=== PATIENT | female | born 1940 | race Caucasian/White ===

== ENCOUNTER 2020-12-15 14:24 | Inpatient (IN) ==
[2020-12-15] MEDS ORDERED: Calcium Gluconate 1gm/50mL 1 GM/50 ML BAG IVPB PRN (14:35)
[2020-12-15 15:02] LABS: Basophils % 0.5 %; Eosinophils # 0.1 K/mcL (0.0-0.6); Eosinophils % 2.2 %; Hemoglobin 10.3 g/dL (11.5-15.4); Immature Granulocytes % 0.3 % (0-4); Lymphocytes # 2.4 K/mcL (0.6-4.6); Lymphocytes % 37.8 %; Mean Corpuscular HGB Conc 31.2 g/dL (31.6-35.5); Mean Corpuscular Hemoglobin 30.4 pg (28.0-33.3); Mean Corpuscular Volume 97.3 fL (83.0-100.0); Mean Platelet Volume 11.6 fL (9.4-12.4); Monocytes # 0.6 K/mcL (0.0-1.3); Monocytes % 8.7 %; Neutrophils # 3.2 K/mcL (1.6-8.9); Platelet Count 150 K/mcL (140-400); Red Blood Count 3.39 M/mcL (3.82-4.97); Red Cell Distribution Width 15.1 % (11.5-14.5); Segmented Neutrophils % 50.5 %; White Blood Count 6.3 K/mcL (4.3-11.1)
[2020-12-15 15:37] LABS: BUN/Creatinine Ratio 13 (6-26); Blood Urea Nitrogen 23 mg/dL (8-23); Calcium 8.6 mg/dL (8.6-10.3); Carbon Dioxide 25 mEq/L (23-29); Chloride 109 mEq/L (98-107); Glucose 130 mg/dL (70-105); Osmolality,Calculated 297 (280-300); Potassium 4.9 mEq/L (3.5-5.1); Sodium 141 mEq/L (136-145); Troponin I < 0.03 ng/mL (< 0.04); eGFR For African Americans 33 (> 60); eGFR For Non-African Americans 27 (> 60)
[2020-12-15] MEDS ORDERED: Perflutren Lipid Microsphere 1.3 ML in 0.9 % Sodium Chloride 8.7 ML IVP PRN (16:10)
[2020-12-15] MEDS ORDERED: 0.9 % Sodium Chloride 500 ML IVC ONE (16:13)
[2020-12-15 16:33] LABS: Magnesium 1.9 mg/dL (1.6-2.6)
[2020-12-15 16:47] LABS: Thyroid Stimulating Hormone 3.953 mcIU/mL (0.340-5.600)
[2020-12-15] MEDS ORDERED: Naloxone 0.4 MG/ML INJ IVP PRN (17:00)
[2020-12-15] MEDS ORDERED: Acetaminophen 325 MG TABLET PO PRN (17:00)
[2020-12-15] MEDS ORDERED: Dextrose Gel 15 GM/37.5 ML TUBE PO PRN ×2 (17:00)
[2020-12-15] MEDS ORDERED: D5% in Water 1,000 ML IVC PRN (17:00)
[2020-12-15] MEDS ORDERED: *HR* Dextrose 50 % in Water (Vial) 50 ML VIAL IVP PRN (17:00)
[2020-12-15] MEDS ORDERED: Ondansetron 4 MG/2 ML VIAL IVP PRN (17:00)
[2020-12-15] MEDS ORDERED: cloNIDine HCL 0.1 MG TABLET PO ONE (19:24)
[2020-12-15] MEDS: *HR* Heparin 5,000 UNIT/ML VIAL SQ SCH (19:25)
[2020-12-15] MEDS ORDERED: Insulin DETEMIR 100 UNIT/ML X5UNITS SUBQ SCH (21:00)
[2020-12-16 02:39] LABS: Basophils % 0.3 %; Eosinophils # 0.2 K/mcL (0.0-0.6); Eosinophils % 1.6 %; Hematocrit 32.9 % (35.3-44.9); Hemoglobin 10.5 g/dL (11.5-15.4); Immature Granulocytes % 0.2 % (0-4); Lymphocytes # 4.5 K/mcL (0.6-4.6); Lymphocytes % 35.5 %; Mean Corpuscular HGB Conc 31.9 g/dL (31.6-35.5); Mean Corpuscular Hemoglobin 30.6 pg (28.0-33.3); Mean Corpuscular Volume 95.9 fL (83.0-100.0); Mean Platelet Volume 11.4 fL (9.4-12.4); Monocytes # 1.4 K/mcL (0.0-1.3); Monocytes % 10.7 %; Neutrophils # 6.5 K/mcL (1.6-8.9); Platelet Count 214 K/mcL (140-400); Red Blood Count 3.43 M/mcL (3.82-4.97); Red Cell Distribution Width 14.9 % (11.5-14.5); Segmented Neutrophils % 51.7 %
[2020-12-16 02:40] LABS: White Blood Count 12.6 K/mcL (4.3-11.1)
[2020-12-16 03:00] LABS: Calcium 8.9 mg/dL (8.6-10.3); Chol/HDL Ratio 4.9 (0-4.9); Potassium 3.8 mEq/L (3.5-5.1); Troponin I 0.03 ng/mL (< 0.04)
[2020-12-16] MEDS: *HR* Heparin 5,000 UNIT/ML VIAL SQ SCH (05:50)
[2020-12-16] MEDS: Insulin LISPRO 300 UNITS/3 ML VIAL SUBQ SCH ×3 (07:39→17:01)
[2020-12-16] MEDS: OLANZapine 5 MG TAB.RAPDIS PO SCH ×2 (09:09→20:45)
[2020-12-16] MEDS: cloNIDine HCL 0.1 MG TABLET PO SCH ×2 (09:09→20:46)
[2020-12-16] MEDS: Cholecalciferol (D-3) 1,000 UNIT (25MCG) TABLET PO SCH (09:09)
[2020-12-16] MEDS: Fenofibrate 54 MG TABLET PO SCH (09:09)
[2020-12-16] MEDS: Divalproex (12 HR) 250 MG TABLET PO SCH (09:09)
[2020-12-16] MEDS: amLODIPine 5 MG TABLET PO SCH (11:47)
[2020-12-16] MEDS: Apixaban 5 MG TABLET PO SCH ×2 (11:47→20:45)
[2020-12-16] MEDS ORDERED: Acetaminophen 325 MG TABLET PO SCH (12:00)
[2020-12-16] MEDS ORDERED: cloNIDine HCL 0.1 MG TABLET PO ONE (19:11)
[2020-12-16] MEDS ORDERED: Melatonin 3 MG TABLET PO SCH (21:00)
[2020-12-16] MEDS ORDERED: Insulin DETEMIR 100 UNIT/ML X5UNITS SUBQ SCH (21:00)
[2020-12-16] MEDS ORDERED: Divalproex Sodium 125 MG Sprinkle Capsule (DR) PO SCH (21:00)
[2020-12-17] MEDS: Insulin LISPRO 300 UNITS/3 ML VIAL SUBQ SCH ×2 (08:41→12:10)
[2020-12-17] MEDS: Cholecalciferol (D-3) 1,000 UNIT (25MCG) TABLET PO SCH (08:47)
[2020-12-17] MEDS: amLODIPine 5 MG TABLET PO SCH (08:48)
[2020-12-17] MEDS: OLANZapine 5 MG TAB.RAPDIS PO SCH (08:48)
[2020-12-17] MEDS: Fenofibrate 54 MG TABLET PO SCH (08:48)
[2020-12-17] MEDS: Divalproex (12 HR) 250 MG TABLET PO SCH (08:48)
[2020-12-17] MEDS: Apixaban 5 MG TABLET PO SCH (08:49)
[2020-12-17] MEDS ORDERED: cloNIDine HCL 0.1 MG TABLET PO SCH (09:00)
[2020-12-17 10:48] VITALS: BP 185/64
== END 2020-12-17 14:39 | DRG 310 ==
LOC: 2NENU 14:24 → EMEROOARM 14:24 → SUATTDRO 16:54 → 2NENU 18:40
PROVIDERS: ADMIT Internal Medicine; ATTEND Internal Medicine

== ENCOUNTER 2021-03-30 19:06 | Inpatient (IN) ==
[2021-03-30 19:54] LABS: Basophils % 0.4 %; Eosinophils % 0.2 %; Hemoglobin 9.7 g/dL (11.5-15.4); Immature Granulocytes % 0.6 % (0-4); Lymphocytes # 0.5 K/mcL (0.6-4.6); Lymphocytes % 9.7 %; Mean Corpuscular HGB Conc 30.3 g/dL (31.6-35.5); Mean Corpuscular Hemoglobin 28.4 pg (28.0-33.3); Mean Corpuscular Volume 93.6 fL (83.0-100.0); Mean Platelet Volume 12.9 fL (9.4-12.4); Monocytes # 0.1 K/mcL (0.0-1.3); Monocytes % 1.5 %; Neutrophils # 4.1 K/mcL (1.6-8.9); Platelet Count 161 K/mcL (140-400); Red Blood Count 3.42 M/mcL (3.82-4.97); Red Cell Distribution Width 15.6 % (11.5-14.5); Segmented Neutrophils % 87.6 %; White Blood Count 4.6 K/mcL (4.3-11.1)
[2021-03-30 19:59] LABS: VBG HCO3 27 mEq/L (21-27); VBG PCO2 48 mmHg (41-51); VBG PH 7.36 pH Units (7.32-7.42); VBG PO2 219 mmHg (25-50)
[2021-03-30 20:06] LABS: Prothrombin Time 11.4 Seconds (9.4-12.1)
[2021-03-30 20:31] LABS: Influenza A PCR Negative (Negative); Influenza B PCR Negative (Negative); Resp. Syncytial Virus PCR Negative (Negative)
[2021-03-30 20:35] LABS: SARS-CoV-2 by PCR (In House) Positive (Negative)
[2021-03-30 21:43] LABS: Albumin 3.3 g/dL (3.5-5.7); Albumin/Globulin Ratio 0.9 (1.1-2.2); Bilirubin,Indirect 0.2 mg/dL (0.0-1.0); Bilirubin,Total 0.2 mg/dL (0.3-1.0); Calcium 8.8 mg/dL (8.6-10.3); Globulin 3.5 g/dL (2.4-3.5); Potassium 4.4 mEq/L (3.5-5.1); Total Protein 6.8 g/dL (6.4-8.9); Troponin I 0.08 ng/mL (< 0.04)
[2021-03-30] MEDS ORDERED: Isovue-370 500 ML BOTTLE IVP ONE (22:09)
[2021-03-31] MEDS ORDERED: Insulin Human Regular 4 UNIT in 0.9 % Sodium Chloride 10 ML IV ONE (01:44)
[2021-03-31] MEDS ORDERED: 0.9 % Sodium Chloride 500 ML IVC ONE (01:44)
[2021-03-31 03:49] LABS: Bilirubin,Urine Negative (Negative); Blood,Urine Negative (Negative); Calcium Oxalate Crystals,Urine Present per hpf; Clarity,Urine Ex.Turbid (Clear); Color,Urine Light-Yellow (Yellow); Glucose,Urine (UA) >=1000 mg/dL (Normal); Ketones,Urine Negative (Negative); Leukocyte Esterase,Urine Negative (Negative); Mucus,Urine Few per lpf (None-Few); Nitrite,Urine Positive (Negative); PH,Urine 8.5 pH Units (5.0-8.0); Protein,Urine Trace mg/dL (Neg-Trace); Specific Gravity,Urine 1.024 (1.010-1.025); Squamous Epithelial Cell,Urine Few per hpf (None-Few); Urobilinogen,Urine Normal (Normal)
[2021-03-31] MEDS ORDERED: Naloxone 0.4 MG/ML INJ IVP PRN (08:19)
[2021-03-31] MEDS ORDERED: Ondansetron 4 MG/2 ML VIAL IVP PRN (08:19)
[2021-03-31] MEDS ORDERED: Acetaminophen 325 MG TABLET PO PRN (08:19)
[2021-03-31] MEDS ORDERED: Perflutren Lipid Microsphere 1.3 ML in 0.9 % Sodium Chloride 8.7 ML IVP PRN (08:26)
[2021-03-31] MEDS ORDERED: Dextrose Gel 15 GM/37.5 ML TUBE PO PRN ×2 (08:33)
[2021-03-31] MEDS ORDERED: *HR* Dextrose 50 % in Water (Syg) 50 ML SYRINGE IVP PRN (08:33)
[2021-03-31] MEDS ORDERED: D5% in Water 1,000 ML IVC PRN (08:33)
[2021-03-31] MEDS: Pantoprazole 40 MG VIAL IVP SCH (10:39)
[2021-03-31] MEDS: Aspirin Enteric Coated 81 MG Tablet PO SCH ×2 (10:40→10:56)
[2021-03-31] MEDS: cefTRIAXone 1,000 MG in Water for inj. (sterile) 10 ML IVP SCH (10:40)
[2021-03-31] MEDS: Ipratropium 1 PUFF INHALER IH SCH ×4 (11:53→23:53)
[2021-03-31] MEDS ORDERED: Remdesivir 200 MG in 0.9 % Sodium Chloride 100 ML IVPB ONE (12:00)
[2021-03-31] MEDS: *HR* Heparin 5,000 UNIT/ML VIAL SQ SCH ×2 (13:22→21:08)
[2021-03-31] MEDS: Insulin LISPRO 300 UNITS/3 ML VIAL SUBQ SCH ×2 (13:27→18:05)
[2021-03-31] MEDS ORDERED: E-Z-HD (BARIUM SULF) SUSPENSION PO ONE (14:54)
[2021-03-31] MEDS ORDERED: E-Z-PAQUE (BARIUM SULF) SUSP 1 BOTTLE PO ONE (14:54)
[2021-03-31 17:36] LABS: Calcium 8.9 mg/dL (8.6-10.3); Magnesium 1.8 mg/dL (1.6-2.6); Potassium 4.2 mEq/L (3.5-5.1)
[2021-03-31] MEDS: Azithromycin 500 MG in D5% in Water 250 ML IVPB SCH (18:06)
[2021-03-31 22:36] LABS: Troponin I 0.28 ng/mL (< 0.04)
[2021-04-01] MEDS: Insulin LISPRO 300 UNITS/3 ML VIAL SUBQ SCH ×4 (00:27→16:55)
[2021-04-01] MEDS: Ipratropium 1 PUFF INHALER IH SCH ×6 (03:53→23:23)
[2021-04-01 04:47] LABS: Red Cell Distribution Width 15.4 % (11.5-14.5)
[2021-04-01 04:49] LABS: Eosinophils % 0.1 %; Hematocrit 29.1 % (35.3-44.9); Hemoglobin 9.2 g/dL (11.5-15.4); Immature Platelets 11.6 % (1.1-6.1); Lymphocytes % 12.8 %; Mean Corpuscular HGB Conc 31.6 g/dL (31.6-35.5); Mean Corpuscular Volume 91.8 fL (83.0-100.0); Monocytes # 0.5 K/mcL (0.0-1.3); Monocytes % 6.3 %; Neutrophils # 6.4 K/mcL (1.6-8.9); Platelet Count 142 K/mcL (140-400); Red Blood Count 3.17 M/mcL (3.82-4.97); Segmented Neutrophils % 79.8 %
[2021-04-01 05:07] LABS: Albumin 3.3 g/dL (3.5-5.7); Albumin/Globulin Ratio 0.9 (1.1-2.2); Bilirubin,Total 0.2 mg/dL (0.3-1.0); Calcium 9.1 mg/dL (8.6-10.3); Globulin 3.6 g/dL (2.4-3.5); Potassium 4.1 mEq/L (3.5-5.1); Total Protein 6.9 g/dL (6.4-8.9)
[2021-04-01 05:08] LABS: Albumin 3.3 g/dL (3.5-5.7); Albumin/Globulin Ratio 0.9 (1.1-2.2); Bilirubin,Indirect 0.2 mg/dL (0.0-1.0); Bilirubin,Total 0.2 mg/dL (0.3-1.0); Chol/HDL Ratio 4.2 (0-4.9); Globulin 3.6 g/dL (2.4-3.5); Total Protein 6.9 g/dL (6.4-8.9)
[2021-04-01 05:15] LABS: Platelet Estimate Slight Decrease (Normal)
[2021-04-01 07:04] LABS: Estimated Average Glucose 151 mg/dl; Hemoglobin A1C 6.9 %
[2021-04-01] MEDS: Pantoprazole 40 MG VIAL IVP SCH (10:53)
[2021-04-01] MEDS: cefTRIAXone 1,000 MG in Water for inj. (sterile) 10 ML IVP SCH (10:54)
[2021-04-01] MEDS: Remdesivir 100 MG in 0.9 % Sodium Chloride 100 ML IVPB SCH (12:42)
[2021-04-01] MEDS: Aspirin 81 MG TAB.CHEW PO SCH (16:53)
[2021-04-01] MEDS: Azithromycin 500 MG in D5% in Water 250 ML IVPB SCH (16:53)
[2021-04-01] MEDS: hydrALAZINE 25 MG TABLET PO SCH (16:53)
[2021-04-01] MEDS: OLANZapine 5 MG TAB.RAPDIS PO SCH (20:37)
[2021-04-01] MEDS: Ascorbic Acid 500 MG TABLET PO SCH (20:37)
[2021-04-01] MEDS ORDERED: Insulin LISPRO 300 UNITS/3 ML VIAL SUBQ SCH (21:00)
[2021-04-02] MEDS: hydrALAZINE 25 MG TABLET PO SCH ×2 (00:44→10:13)
[2021-04-02 01:57] LABS: Basophils % 0.1 %; Hematocrit 27.9 % (35.3-44.9); Immature Granulocytes % 1.5 % (0-4); Lymphocytes % 13.2 %; Mean Corpuscular HGB Conc 32.3 g/dL (31.6-35.5); Mean Corpuscular Hemoglobin 29.4 pg (28.0-33.3); Mean Corpuscular Volume 91.2 fL (83.0-100.0); Mean Platelet Volume 11.9 fL (9.4-12.4); Monocytes # 0.5 K/mcL (0.0-1.3); Monocytes % 5.7 %; Neutrophils # 6.3 K/mcL (1.6-8.9); Platelet Count 159 K/mcL (140-400); Red Blood Count 3.06 M/mcL (3.82-4.97); Red Cell Distribution Width 15.4 % (11.5-14.5); Segmented Neutrophils % 79.5 %; White Blood Count 7.9 K/mcL (4.3-11.1)
[2021-04-02 02:12] LABS: Albumin 3.1 g/dL (3.5-5.7); Albumin/Globulin Ratio 0.9 (1.1-2.2); Bilirubin,Indirect 0.2 mg/dL (0.0-1.0); Bilirubin,Total 0.2 mg/dL (0.3-1.0); Calcium 8.9 mg/dL (8.6-10.3); Globulin 3.3 g/dL (2.4-3.5); Total Protein 6.4 g/dL (6.4-8.9)
[2021-04-02] MEDS: Ipratropium 1 PUFF INHALER IH SCH ×4 (04:43→15:30)
[2021-04-02] MEDS ORDERED: NON-FORMULARY MEDICATION 1 EACH EACH (Cholecalciferol (Vitamin D3) [Vitamin D3] 50 MCG Cap PO SCH (09:00)
[2021-04-02] MEDS ORDERED: modafiniL 100 MG TABLET PO SCH (09:00)
[2021-04-02] MEDS ORDERED: Cholecalciferol (D-3) 1,000 UNIT (25MCG) TABLET PO SCH (09:00)
[2021-04-02] MEDS: OLANZapine 5 MG TAB.RAPDIS PO SCH (10:15)
[2021-04-02] MEDS: Ascorbic Acid 500 MG TABLET PO SCH (10:15)
[2021-04-02] MEDS: Aspirin 81 MG TAB.CHEW PO SCH (10:15)
[2021-04-02] MEDS: cefTRIAXone 1,000 MG in Water for inj. (sterile) 10 ML IVP SCH (10:16)
[2021-04-02] MEDS: Pantoprazole 40 MG VIAL IVP SCH (10:16)
[2021-04-02 12:37] VITALS: BP 138/74; PULSE 97; TEMP 98.7
[2021-04-02] MEDS: Insulin LISPRO 300 UNITS/3 ML VIAL SUBQ SCH ×2 (14:06→14:07)
[2021-04-02] MEDS: Remdesivir 100 MG in 0.9 % Sodium Chloride 100 ML IVPB SCH (14:07)
[2021-04-02 16:57] VITALS: O2SAT 98
== END 2021-04-02 17:30 | DRG 177 ==
LOC: 2ANU 19:06 → EMEROOARM 19:06 → 2ANU 03-31 09:31 → SUATTDRO 04-01 12:50
PROVIDERS: ADMIT General Practice; ATTEND Family Medicine

== ENCOUNTER 2021-05-20 18:12 | Inpatient (IN) ==
[2021-05-20] MEDS ORDERED: *HR* Promethazine 25 MG/ML VIAL IM PRN (22:22)
[2021-05-20] MEDS ORDERED: Acetaminophen 325 MG TABLET PO PRN (22:22)
[2021-05-20] MEDS ORDERED: Naloxone 0.4 MG/ML INJ IVP PRN (22:22)
[2021-05-20] MEDS ORDERED: *HR* Dextrose 50 % in Water (Syg) 50 ML SYRINGE IVP PRN (22:23)
[2021-05-20] MEDS ORDERED: Dextrose Gel 15 GM/37.5 ML TUBE PO PRN ×2 (22:23)
[2021-05-20] MEDS ORDERED: D5% in Water 1,000 ML IVC PRN (22:23)
[2021-05-20 23:24] LABS: Troponin I 0.04 ng/mL (< 0.04)
[2021-05-20 23:31] LABS: Estimated Average Glucose 174 mg/dl; Hemoglobin A1C 7.7 %
[2021-05-20 23:32] LABS: Thyroid Stimulating Hormone 3.588 mcIU/mL (0.340-5.600)
[2021-05-21 04:42] LABS: Hematocrit 30.8 % (35.3-44.9); Hemoglobin 9.5 g/dL (11.5-15.4); Mean Corpuscular HGB Conc 30.8 g/dL (31.6-35.5); Mean Corpuscular Hemoglobin 28.3 pg (28.0-33.3); Mean Corpuscular Volume 91.7 fL (83.0-100.0); Mean Platelet Volume 10.9 fL (9.4-12.4); Platelet Count 209 K/mcL (140-400); Red Blood Count 3.36 M/mcL (3.82-4.97); Red Cell Distribution Width 16.2 % (11.5-14.5)
[2021-05-21] MEDS: hydrALAZINE 25 MG TABLET PO SCH ×5 (05:00→21:30)
[2021-05-21 05:03] LABS: Calcium 9.4 mg/dL (8.6-10.3); Magnesium 1.7 mg/dL (1.6-2.6); Phosphorous 3.9 mg/dL (2.7-4.5); Potassium 3.6 mEq/L (3.5-5.1)
[2021-05-21 05:06] LABS: % Iron Saturation 10 % (15-50); Iron 35 mcg/dL (50-170); Transferrin 262 mg/dL (203-362)
[2021-05-21 05:20] LABS: Ferritin 39 ng/mL (10-120)
[2021-05-21 05:26] LABS: Folate 14.7 ng/mL (3.0-16.0)
[2021-05-21] MEDS ORDERED: carvediloL 6.25 MG TABLET PO SCH (08:00)
[2021-05-21] MEDS: Multivit/Ca/Min/Fe/FA 1 TAB TABLET PO SCH (08:15)
[2021-05-21] MEDS: OLANZapine 5 MG TAB.RAPDIS PO SCH ×2 (08:15→21:31)
[2021-05-21] MEDS: Chlorhexidine Rinse 15 ML MOUTHWASH MM SCH ×2 (08:15→21:31)
[2021-05-21] MEDS ORDERED: carvediloL 6.25 MG TABLET PO ONE (12:42)
[2021-05-21] MEDS: carvediloL 25 MG TABLET PO SCH ×2 (16:47→17:05)
[2021-05-21] MEDS ORDERED: Melatonin 3 MG TABLET PO SCH (21:00)
[2021-05-22] MEDS: hydrALAZINE 25 MG TABLET PO SCH ×2 (05:11→14:22)
[2021-05-22] MEDS: carvediloL 25 MG TABLET PO SCH ×2 (08:18→17:06)
[2021-05-22] MEDS: OLANZapine 5 MG TAB.RAPDIS PO SCH (08:18)
[2021-05-22] MEDS: Multivit/Ca/Min/Fe/FA 1 TAB TABLET PO SCH (08:18)
[2021-05-22] MEDS: Chlorhexidine Rinse 15 ML MOUTHWASH MM SCH (08:20)
[2021-05-22 10:19] VITALS: PULSE 61
[2021-05-22 15:10] VITALS: BP 147/64; TEMP 97.7; O2SAT 91
== END 2021-05-22 17:36 | DRG 637 ==
LOC: 3BNU → SUATTDRO 21:37
PROVIDERS: ADMIT Pharmacist; ATTEND Registered Nurse

== ENCOUNTER 2021-10-09 22:18 | Inpatient (IN) ==
[2021-10-09 23:25] LABS: Bilirubin,Urine Negative (Negative); Blood,Urine Negative (Negative); Clarity,Urine Clear (Clear); Color,Urine Light-Yellow (Yellow); Glucose,Urine (UA) Normal (Normal); Ketones,Urine Negative (Negative); Leukocyte Esterase,Urine Negative (Negative); Nitrite,Urine Negative (Negative); PH,Urine 5.5 pH Units (5.0-8.0); Protein,Urine Negative (Neg-Trace); Specific Gravity,Urine 1.013 (1.010-1.025); Urobilinogen,Urine Normal (Normal)
[2021-10-09 23:34] LABS: Basophils % 0.4 %; Eosinophils # 0.1 K/mcL (0.0-0.6); Eosinophils % 1.9 %; Hemoglobin 10.4 g/dL (11.5-15.4); Immature Granulocytes % 0.2 % (0-4); Lymphocytes # 1.1 K/mcL (0.6-4.6); Lymphocytes % 22.9 %; Mean Corpuscular HGB Conc 31.5 g/dL (31.6-35.5); Mean Corpuscular Hemoglobin 30.2 pg (28.0-33.3); Mean Corpuscular Volume 95.9 fL (83.0-100.0); Mean Platelet Volume 11.9 fL (9.4-12.4); Monocytes # 0.4 K/mcL (0.0-1.3); Monocytes % 7.6 %; Neutrophils # 3.2 K/mcL (1.6-8.9); Platelet Count 136 K/mcL (140-400); Red Blood Count 3.44 M/mcL (3.82-4.97); Red Cell Distribution Width 14.1 % (11.5-14.5); White Blood Count 4.8 K/mcL (4.3-11.1)
[2021-10-09 23:35] LABS: INR 1.1; Prothrombin Time 12.3 Seconds (9.4-12.1)
[2021-10-09 23:35] LABS: Amphetamine Screen,Urine Negative ng/mL (Cutoff=1000); Barbiturate Screen,Urine Negative ng/mL (Cutoff=200); Benzodiazepines Screen,Urine Negative ng/mL (Cutoff=200); Cannabinoid Screen,Urine Negative ng/mL (Cutoff = 50); Cocaine Screen,Urine Negative ng/mL (Cutoff= 300); Opiate Screen,Urine Negative ng/mL (Cutoff=300); Phencyclidine Screen,Urine Negative ng/mL (Cutoff=25)
[2021-10-09 23:44] LABS: Alanine Aminotransferase 14 Units/L (7-52); Albumin 3.6 g/dL (3.5-5.7); Albumin/Globulin Ratio 1.1 (1.1-2.2); Alkaline Phosphatase 34 Units/L (34-104); Aspartate Amino Transferase 16 Units/L (13-39); BUN/Creatinine Ratio 15 (6-26); Bilirubin,Indirect 0.3 mg/dL (0.0-1.0); Bilirubin,Total 0.3 mg/dL (0.3-1.0); Blood Urea Nitrogen 24 mg/dL (8-23); Calcium 9.3 mg/dL (8.6-10.3); Carbon Dioxide 30 mEq/L (23-29); Chloride 103 mEq/L (98-107); Ethanol < 10 mg/dL (Less than 10); Globulin 3.3 g/dL (2.4-3.5); Glucose 139 mg/dL (70-105); Osmolality,Calculated 298 (280-300); Potassium 4.1 mEq/L (3.5-5.1); Sodium 141 mEq/L (136-145); Total Protein 6.9 g/dL (6.4-8.9); eGFR For African Americans 39 (> 60); eGFR For Non-African Americans 32 (> 60)
[2021-10-09 23:51] LABS: Troponin I 0.19 ng/mL (< 0.04)
[2021-10-10] MEDS ORDERED: Furosemide 40 MG/4 ML VIAL IVP ONE (00:20)
[2021-10-10] MEDS ORDERED: Naloxone 0.4 MG/ML INJ IVP PRN (00:45)
[2021-10-10] MEDS ORDERED: Gadolinium Contrast Agent (WT Based) IV PRN (02:42)
[2021-10-10] MEDS ORDERED: Perflutren Lipid Microsphere 1.3 ML in 0.9 % Sodium Chloride 8.7 ML IVP PRN (02:42)
[2021-10-10] MEDS ORDERED: D5% in Water 1,000 ML IVC PRN (02:52)
[2021-10-10] MEDS ORDERED: *HR* Dextrose 50 % in Water (Syg) 50 ML SYRINGE IVP PRN (02:52)
[2021-10-10] MEDS ORDERED: Dextrose 4 GM Chewable Tablets PO PRN ×2 (02:52)
[2021-10-10 04:21] LABS: ABG Base Excess 7 mEq/L (-2 to 3); ABG HCO3 33 mEq/L (21-27); ABG Oxygen Saturation 97 % (95-98); ABG PCO2 53 mmHg (35-45); ABG PO2 93 mmHg (85-104); ABG TCO2 34 mEq/L (20-26)
[2021-10-10 05:59] LABS: Estimated Average Glucose 203 mg/dl; Hemoglobin A1C 8.7 %
[2021-10-10 06:00] LABS: INR 1.1; Prothrombin Time 12.1 Seconds (9.4-12.1)
[2021-10-10 06:06] LABS: Activated Partial Thrombo Time 16.6 Seconds (26.0-36.0)
[2021-10-10 06:23] LABS: Calcium 9.3 mg/dL (8.6-10.3); Chol/HDL Ratio 3.7 (0-4.9); Magnesium 1.5 mg/dL (1.6-2.6); Phosphorous 4.5 mg/dL (2.7-4.5)
[2021-10-10 06:25] LABS: Troponin I 0.2 ng/mL (< 0.04)
[2021-10-10 06:30] LABS: Basophils % 0.3 %; Eosinophils # 0.2 K/mcL (0.0-0.6); Eosinophils % 2.6 %; Hematocrit 33.1 % (35.3-44.9); Hemoglobin 10.2 g/dL (11.5-15.4); Immature Granulocytes % 0.3 % (0-4); Lymphocytes # 1.2 K/mcL (0.6-4.6); Lymphocytes % 21.6 %; Mean Corpuscular HGB Conc 30.8 g/dL (31.6-35.5); Mean Corpuscular Hemoglobin 30.1 pg (28.0-33.3); Mean Corpuscular Volume 97.6 fL (83.0-100.0); Monocytes # 0.4 K/mcL (0.0-1.3); Monocytes % 7.7 %; Neutrophils # 3.9 K/mcL (1.6-8.9); Platelet Count 144 K/mcL (140-400); Red Blood Count 3.39 M/mcL (3.82-4.97); Red Cell Distribution Width 14.1 % (11.5-14.5); Segmented Neutrophils % 67.5 %; White Blood Count 5.7 K/mcL (4.3-11.1)
[2021-10-10 06:37] LABS: Thyroid Stimulating Hormone 3.947 mcIU/mL (0.340-5.600)
[2021-10-10 06:46] LABS: Folate 19.2 ng/mL (3.0-16.0)
[2021-10-10] MEDS: Insulin LISPRO 300 UNITS/3 ML VIAL SUBQ SCH ×3 (07:46→16:40)
[2021-10-10] MEDS ORDERED: GADOBUTROL 30 MMOL/30 ML VIAL IVP ONE (09:19)
[2021-10-10] MEDS ORDERED: cloNIDine HCL 0.1 MG TABLET PO PRN (13:03)
[2021-10-10] MEDS ORDERED: Acetaminophen 325 MG TABLET PO PRN (13:03)
[2021-10-10] MEDS: hydrALAZINE 25 MG TABLET PO SCH ×2 (13:20→22:19)
[2021-10-10] MEDS: modafiniL 100 MG TABLET PO SCH (13:20)
[2021-10-10] MEDS: Furosemide 40 MG TABLET PO SCH ×2 (16:17→16:41)
[2021-10-10] MEDS: carvediloL 6.25 MG TABLET PO SCH ×2 (16:17→16:41)
[2021-10-10] MEDS: Insulin DETEMIR 100 UNIT/ML X5UNITS SUBQ SCH (22:13)
[2021-10-10] MEDS: OLANZapine 5 MG TAB.RAPDIS PO SCH (22:18)
[2021-10-11] MEDS: Insulin LISPRO 300 UNITS/3 ML VIAL SUBQ SCH ×4 (00:24→17:31)
[2021-10-11] MEDS ORDERED: *HR* Labetalol 20 MG/4 ML SYRINGE IVP ONE (04:19)
[2021-10-11] MEDS: Furosemide 40 MG TABLET PO SCH ×2 (08:13→16:06)
[2021-10-11] MEDS: modafiniL 100 MG TABLET PO SCH (08:14)
[2021-10-11] MEDS: OLANZapine 5 MG TAB.RAPDIS PO SCH ×2 (08:14→21:05)
[2021-10-11] MEDS: carvediloL 6.25 MG TABLET PO SCH ×2 (08:14→16:06)
[2021-10-11] MEDS: Fenofibrate 54 MG TABLET PO SCH (08:14)
[2021-10-11] MEDS: hydrALAZINE 25 MG TABLET PO SCH ×3 (08:14→21:05)
[2021-10-11 08:22] LABS: Basophils % 0.6 %; Eosinophils # 0.1 K/mcL (0.0-0.6); Eosinophils % 2.5 %; Hematocrit 29.6 % (35.3-44.9); Hemoglobin 9.6 g/dL (11.5-15.4); Immature Granulocytes % 0.2 % (0-4); Lymphocytes # 1.3 K/mcL (0.6-4.6); Lymphocytes % 26.8 %; Mean Corpuscular HGB Conc 32.4 g/dL (31.6-35.5); Mean Corpuscular Hemoglobin 31.3 pg (28.0-33.3); Mean Corpuscular Volume 96.4 fL (83.0-100.0); Mean Platelet Volume 11.6 fL (9.4-12.4); Monocytes # 0.5 K/mcL (0.0-1.3); Monocytes % 9.2 %; Platelet Count 153 K/mcL (140-400); Red Blood Count 3.07 M/mcL (3.82-4.97); Red Cell Distribution Width 14.1 % (11.5-14.5); Segmented Neutrophils % 60.7 %; White Blood Count 4.9 K/mcL (4.3-11.1)
[2021-10-11] MEDS: Insulin DETEMIR 100 UNIT/ML X5UNITS SUBQ SCH ×2 (08:30→21:05)
[2021-10-11 08:40] LABS: Calcium 9.4 mg/dL (8.6-10.3); Magnesium 1.4 mg/dL (1.6-2.6); Phosphorous 2.5 mg/dL (2.7-4.5); Potassium 3.4 mEq/L (3.5-5.1)
[2021-10-11] MEDS ORDERED: Furosemide 20 MG/2 ML VIAL IVP ONE (12:37)
[2021-10-11] MEDS ORDERED: Haloperidol Lactate 5 MG/ML VIAL IM ONE (12:40)
[2021-10-11] MEDS: Albumin 25% 25gram/100mL 25 GM/100 ML IV.SOLN IVPB SCH ×2 (16:05→16:17)
[2021-10-11] MEDS: *HR* Heparin 5,000 UNIT/ML VIAL SQ SCH (16:44)
[2021-10-11] MEDS ORDERED: levETIRAcetam 500 MG/5 ML UDC PO SCH (21:00)
[2021-10-11] MEDS ORDERED: levETIRAcetam 250 MG in 0.9 % Sodium Chloride 100 ML IVPB ONE (21:00)
[2021-10-12] MEDS: Insulin LISPRO 300 UNITS/3 ML VIAL SUBQ SCH ×3 (00:08→12:41)
[2021-10-12] MEDS: Albumin 25% 25gram/100mL 25 GM/100 ML IV.SOLN IVPB SCH ×2 (00:08→09:19)
[2021-10-12] MEDS ORDERED: *HR* Labetalol 20 MG/4 ML SYRINGE IVP ONE (04:14)
[2021-10-12] MEDS: *HR* Heparin 5,000 UNIT/ML VIAL SQ SCH (04:20)
[2021-10-12 05:15] LABS: Calcium 9.7 mg/dL (8.6-10.3); Magnesium 2.2 mg/dL (1.6-2.6); Phosphorous 3.3 mg/dL (2.7-4.5); Potassium 3.7 mEq/L (3.5-5.1)
[2021-10-12] MEDS ORDERED: Insulin DETEMIR 100 UNIT/ML X5UNITS SUBQ SCH (09:00)
[2021-10-12] MEDS: OLANZapine 5 MG TAB.RAPDIS PO SCH (09:09)
[2021-10-12] MEDS: carvediloL 6.25 MG TABLET PO SCH (09:10)
[2021-10-12] MEDS: Fenofibrate 54 MG TABLET PO SCH (09:10)
[2021-10-12] MEDS: modafiniL 100 MG TABLET PO SCH (09:10)
[2021-10-12] MEDS: hydrALAZINE 25 MG TABLET PO SCH ×2 (09:10→14:39)
[2021-10-12] MEDS: Furosemide 40 MG TABLET PO SCH (09:10)
[2021-10-12 11:08] VITALS: BP 155/74; PULSE 67; TEMP 98.6; O2SAT 93
[2021-10-12 12:22] LABS: Influenza A PCR Negative (Negative); Influenza B PCR Negative (Negative); Resp. Syncytial Virus PCR Negative (Negative)
[2021-10-12 12:23] LABS: SARS-CoV-2 by PCR (In House) Negative (Negative)
== END 2021-10-12 16:05 | DRG 291 ==
LOC: EMEROOARM 22:18 → 3BNU 22:18 → SUATTDRO 10-10 00:55 → 3BNU 10-10 01:27
PROVIDERS: ADMIT Internal Medicine; ATTEND Internal Medicine